=== PATIENT | female | born 1990 | race Caucasian/White ===

== ENCOUNTER 2022-10-05 17:19 | Emergency (ER) | payer OTHER, BC ==
[2022-10-05] MEDS ORDERED: Lidocaine 1% (PF) 30 ML VIAL ONE (20:06)
[2022-10-05] MEDS ORDERED: Boostrix 0.5 ML (Tdap) VIAL (>/=7 yrs of age) ONE (20:16)
== END 2022-10-05 20:45 | disposition home or self-care (01) ==
LOC: CSHERS 17:19
DX: S61.051A Open bite of right thumb without damage to nail, initial encounter (principal); Z23 Encounter for immunization; W54.0XXA Bitten by dog, initial encounter
CPT/HCPCS: 12001; 90471; 90715; J2001